=== PATIENT | male | born 1935 | race Asian ===

== ENCOUNTER 2019-05-09 14:35 | Emergency (ER) | payer BC, MEDICAID ==
[~2019-05-09] VITALS: Ht 160 cm; Wt 49.9 kg
[2019-05-09 15:24] VITALS: BP 117/53
== END 2019-05-09 17:12 | disposition home or self-care (01) ==
LOC: ER 14:35
DX: S86.912A Strain of unspecified muscle(s) and tendon(s) at lower leg level, left leg, initial encounter (principal); S80.212A Abrasion, left knee, initial encounter; W18.39XA Other fall on same level, initial encounter; Y93.01 Activity, walking, marching and hiking; Y92.488 Other paved roadways as the place of occurrence of the external cause; Y99.8 Other external cause status
CPT/HCPCS: 73562

== ENCOUNTER 2019-11-17 13:25 | Inpatient (IN) | payer MEDICARE, MEDICAID ==
[~2019-11-17] VITALS: Ht 165.1 cm; Wt 106.1 kg
[2019-11-17] MEDS ORDERED: SODIUM CHLORIDE 0.9% 500 ML IVB ONE (13:45)
[2019-11-17 15:41] LABS: Basophils # (auto) 0 10 ^3/uL (0-0.2); Basophils % (auto) 0.2 % (0.0-2.0); Eosinophils # (auto) 0 10 ^3/uL (0-0.8); Eosinophils % (auto) 0.1 % (0.0-7.0); Hematocrit 40.6 % (41.0-53.0); Hemoglobin 13.4 g/dL (13.5-17.5); Lymphocytes # (auto) 0.5 10 ^3/uL (0.4-5.4); Lymphocytes % (auto) 4.8 % (10.0-50.0); Mean Corpuscular Hemoglobin 31.8 pg (28.0-32.0); Mean Corpuscular Hgb Conc. 32.9 g/dL (32.0-36.0); Mean Corpuscular Volume 96.6 fL (80.0-100.0); Monocytes # (auto) 0.5 10 ^3/uL (0-1.3); Monocytes % (auto) 4.4 % (0.0-12.0); Neutrophils # (auto) 9.6 10 ^3/uL (1.6-8.6); Neutrophils % (auto) 90.5 % (37.0-80.0); Platelet Count (auto) 151 10^3/uL (140-450); Red Cell Distribution Width 13.9 % (11.8-14.3); White Blood Cell 10.6 10^3/uL (4.4-10.8)
[2019-11-17] MEDS ORDERED: ONDANSETRON HCL 4 MG/2 ML VIAL IV ONE (16:00)
[2019-11-17] MEDS ORDERED: MORPHINE SULF INJ 2 MG/ML SYRINGE 1ML IV ONE (16:00)
[2019-11-17 16:02] LABS: Albumin 2.9 g/dL (3.4-5.0); Potassium 3.5 mmol/L (3.5-5.1)
[2019-11-17 16:11] LABS: BUN/Creatinine Ratio 17.8; Bilirubin, Total 0.6 mg/dL (0.2-1.0); CRP High Sensitivity 7.08 mg/dL (< 0.3)
[2019-11-17] MEDS ORDERED: TEMAZEPAM 15 MG CAP PO PRN (19:30)
[2019-11-17] MEDS ORDERED: MORPHINE SULF INJ 2 MG/ML SYRINGE 1ML IV PRN (19:30)
[2019-11-17] MEDS ORDERED: ACETAMINOPHEN 500 MG TAB PO PRN (19:30)
[2019-11-17] MEDS ORDERED: NITROGLYCERIN 0.4 MG SL TAB SL PRN (19:30)
[2019-11-17] MEDS ORDERED: SODIUM CHLORIDE 0.9% 1,000 ML IV SCH (19:30)
[2019-11-17] MEDS ORDERED: levoFLOXacin 500MG 100 ML IV ONE (19:30)
[2019-11-17] MEDS ORDERED: hydrALAZINE HCL 20 MG/ML VL IV PRN (20:00)
[2019-11-17] MEDS ORDERED: ALBUTEROL SULF HFA 90MCG INH 200DOSE IN SCH (22:00)
[2019-11-17] MEDS ORDERED: BUDESONIDE (INHALATION) 180 MCG IH IN SCH (22:00)
[2019-11-17] MEDS: CLINDAMYCIN 600MG IV 50 ML IV SCH (23:30)
[2019-11-17] MEDS: FAMOTIDINE 20 MG TAB PO SCH (23:30)
[2019-11-18] VITALS (7 sets, daily range): BP systolic 110–181; BP diastolic 63–81
[2019-11-18] MEDS ORDERED: hydrALAZINE HCL 20 MG/ML VL ONE (01:55)
[2019-11-18] MEDS: CLINDAMYCIN 600MG IV 50 ML IV SCH ×2 (06:49→14:27)
[2019-11-18 07:10] LABS: Basophils # (auto) 0 10 ^3/uL (0-0.2); Basophils % (auto) 0.1 % (0.0-2.0); Eosinophils # (auto) 0 10 ^3/uL (0-0.8); Hematocrit 39.3 % (41.0-53.0); Hemoglobin 13.3 g/dL (13.5-17.5); Lymphocytes # (auto) 0.6 10 ^3/uL (0.4-5.4); Lymphocytes % (auto) 5.2 % (10.0-50.0); Mean Corpuscular Hemoglobin 32.8 pg (28.0-32.0); Mean Corpuscular Hgb Conc. 33.7 g/dL (32.0-36.0); Mean Corpuscular Volume 97.2 fL (80.0-100.0); Monocytes # (auto) 0.7 10 ^3/uL (0-1.3); Monocytes % (auto) 5.7 % (0.0-12.0); Neutrophils # (auto) 10.8 10 ^3/uL (1.6-8.6); Platelet Count (auto) 139 10^3/uL (140-450); Red Blood Cells 4.04 10^6/uL (4.5-5.90); Red Cell Distribution Width 14.1 % (11.8-14.3); White Blood Cell 12.1 10^3/uL (4.4-10.8)
[2019-11-18 07:32] LABS: Albumin 2.5 g/dL (3.4-5.0); BUN/Creatinine Ratio 21.5; Calcium 8.1 mg/dL (8.5-10.1); Potassium 3.3 mmol/L (3.5-5.1)
[2019-11-18 07:36] LABS: Bilirubin, Total 0.8 mg/dL (0.2-1.0); Total Protein 6.6 g/dL (6.4-8.2)
[2019-11-18] MEDS: DexAMETHasone SOD PHOS 10MG/1ML VIAL INJ IV SCH (08:35)
[2019-11-18] MEDS: ZINC SULFATE 220mg CAP or TAB PO SCH (08:35)
[2019-11-18] MEDS: CHOLECALCIFEROL (VITD3) 2,000 UNIT CAP PO SCH (08:36)
[2019-11-18] MEDS: ASCORBIC ACID 1,000 MG TAB PO SCH (08:36)
[2019-11-18] MEDS: FAMOTIDINE 20 MG TAB PO SCH (08:38)
[2019-11-18] MEDS: ENOXAPARIN SOD 40 MG/0.4 ML SYRINGE SC SCH (08:38)
[2019-11-18] MEDS ORDERED: levoFLOXacin 500MG 100 ML IV SCH (10:00)
[2019-11-18] MEDS ORDERED: ENOXAPARIN SOD 40 MG/0.4 ML SYRINGE SC SCH (10:00)
[2019-11-18] MEDS ORDERED: VANCOMYCIN PER PHARMACY 0 MG IV SCH (15:45)
[2019-11-18] MEDS ORDERED: POTASSIUM EFFERVESENT TAB 25 MEQ PO ONE (15:45)
[2019-11-18] MEDS: VANCOMYCIN 750mg/250ml 250 ML IV SCH (16:50)
[2019-11-18] MEDS: Ensure HIGH Protein Chocolate 8oz Bottle PO SCH (17:45)
[2019-11-18] MEDS: MEROPENEM 1GM IVPB 100 ML IV SCH (19:34)
[2019-11-19 05:00] VITALS: BP 161/70
[2019-11-19] MEDS: MEROPENEM 1GM IVPB 100 ML IV SCH ×2 (06:20→18:02)
[2019-11-19] MEDS: traMADol HCL 50 MG TAB PO PRN ×2 (06:50→16:54)
[2019-11-19 07:08] LABS: Urine WBC None Seen /hpf (0 - 3)
[2019-11-19 07:08] LABS: Basophils # (auto) 0 10 ^3/uL (0-0.2); Basophils % (auto) 0.2 % (0.0-2.0); Eosinophils # (auto) 0 10 ^3/uL (0-0.8); Eosinophils % (auto) 0.1 % (0.0-7.0); Hemoglobin 11.6 g/dL (13.5-17.5); Lymphocytes # (auto) 0.6 10 ^3/uL (0.4-5.4); Lymphocytes % (auto) 6.7 % (10.0-50.0); Mean Corpuscular Hgb Conc. 34.2 g/dL (32.0-36.0); Mean Corpuscular Volume 96.7 fL (80.0-100.0); Monocytes # (auto) 0.6 10 ^3/uL (0-1.3); Monocytes % (auto) 7.1 % (0.0-12.0); Neutrophils # (auto) 7.4 10 ^3/uL (1.6-8.6); Neutrophils % (auto) 85.9 % (37.0-80.0); Nucleated Red Blood Cells % 0.1 %; Platelet Count (auto) 123 10^3/uL (140-450); Red Blood Cells 3.52 10^6/uL (4.5-5.90); Red Cell Distribution Width 13.7 % (11.8-14.3); White Blood Cell 8.6 10^3/uL (4.4-10.8)
[2019-11-19 07:25] LABS: BUN/Creatinine Ratio 31.7; Calcium 8.1 mg/dL (8.5-10.1); Potassium 3.1 mmol/L (3.5-5.1)
[2019-11-19 07:56] LABS: Urine Bacteria FEW /hpf (None Seen); Urine Blood 2+ /uL (Negative); Urine Specific Gravity 1.023 (1.001-1.035)
[2019-11-19] MEDS: Ensure HIGH Protein Chocolate 8oz Bottle PO SCH ×3 (08:00→17:50)
[2019-11-19] MEDS: DexAMETHasone SOD PHOS 10MG/1ML VIAL INJ IV SCH (08:10)
[2019-11-19] MEDS: ASCORBIC ACID 1,000 MG TAB PO SCH (08:10)
[2019-11-19] MEDS: CHOLECALCIFEROL (VITD3) 2,000 UNIT CAP PO SCH (08:10)
[2019-11-19] MEDS: ZINC SULFATE 220mg CAP or TAB PO SCH (08:10)
[2019-11-19] MEDS: ENOXAPARIN SOD 40 MG/0.4 ML SYRINGE SC SCH (08:29)
[2019-11-19] MEDS: FAMOTIDINE 20 MG TAB PO SCH (08:29)
[2019-11-19 09:24] VITALS: BP 135/60
[2019-11-19] MEDS ORDERED: CHOLECALCIFEROL (VITD3) 1,000UNIT=25mCg TAB PO SCH (10:22)
[2019-11-19] MEDS ORDERED: ASCORBIC ACID 500 MG TAB PO SCH (10:22)
[2019-11-19] MEDS ORDERED: POTASSIUM EFFERVESENT TAB 25 MEQ PO ONE (12:00)
[2019-11-19 13:00] VITALS: BP 149/71
[2019-11-19] MEDS: VANCOMYCIN 750mg/250ml 250 ML IV SCH (16:28)
[2019-11-19 16:41] VITALS: BP 184/87
[2019-11-19] MEDS: LABETALOL HCL 5 MG/ML 4ML SYRINGE IV PRN ×2 (16:54→20:47)
[2019-11-19 17:00] VITALS: BP_SYST 124; BP_SYST 180; BP_DIAS 74; BP_DIAS 84
[2019-11-19 22:00] VITALS: BP 186/74
[2019-11-20] MEDS: LABETALOL HCL 5 MG/ML 4ML SYRINGE IV PRN ×3 (04:51→23:11)
[2019-11-20 05:00] VITALS: BP_SYST 179; BP_SYST 59; BP_DIAS 179; BP_DIAS 76
[2019-11-20 05:40] LABS: Basophils # (auto) 0 10 ^3/uL (0-0.2); Basophils % (auto) 0.2 % (0.0-2.0); Eosinophils # (auto) 0 10 ^3/uL (0-0.8); Eosinophils % (auto) 0.5 % (0.0-7.0); Hematocrit 34.1 % (41.0-53.0); Hemoglobin 11.3 g/dL (13.5-17.5); Lymphocytes # (auto) 0.6 10 ^3/uL (0.4-5.4); Lymphocytes % (auto) 8.1 % (10.0-50.0); Mean Corpuscular Hemoglobin 32.2 pg (28.0-32.0); Mean Corpuscular Hgb Conc. 33.1 g/dL (32.0-36.0); Mean Corpuscular Volume 97.2 fL (80.0-100.0); Monocytes # (auto) 0.5 10 ^3/uL (0-1.3); Monocytes % (auto) 7.6 % (0.0-12.0); Neutrophils % (auto) 83.6 % (37.0-80.0); Nucleated Red Blood Cells % 0.1 %; Platelet Count (auto) 133 10^3/uL (140-450); Red Blood Cells 3.51 10^6/uL (4.5-5.90); Red Cell Distribution Width 13.6 % (11.8-14.3); White Blood Cell 7.2 10^3/uL (4.4-10.8)
[2019-11-20 06:00] LABS: BUN/Creatinine Ratio 34.5
[2019-11-20] MEDS: MEROPENEM 1GM IVPB 100 ML IV SCH ×2 (06:25→21:28)
[2019-11-20] MEDS: traMADol HCL 50 MG TAB PO PRN ×3 (06:34→21:54)
[2019-11-20] MEDS: Ensure HIGH Protein Chocolate 8oz Bottle PO SCH ×3 (08:00→18:00)
[2019-11-20] MEDS: FAMOTIDINE 20 MG TAB PO SCH (08:42)
[2019-11-20] MEDS: ENOXAPARIN SOD 40 MG/0.4 ML SYRINGE SC SCH (08:42)
[2019-11-20] MEDS: hydrALAZINE HCL 10 MG TAB PO PRN ×2 (08:42→21:54)
[2019-11-20 09:00] VITALS: BP 167/77
[2019-11-20] MEDS ORDERED: POTASSIUM EFFERVESENT TAB 25 MEQ PO ONE (10:45)
[2019-11-20 13:00] VITALS: BP 150/74
[2019-11-20] MEDS: VANCOMYCIN 750mg/250ml 250 ML IV SCH (16:40)
[2019-11-20 16:53] VITALS: BP 197/84
[2019-11-20 22:00] VITALS: BP 163/79
[2019-11-21] MEDS: hydrALAZINE HCL 10 MG TAB PO PRN ×4 (00:50→17:41)
[2019-11-21] MEDS: LABETALOL HCL 5 MG/ML 4ML SYRINGE IV PRN ×4 (03:31→17:40)
[2019-11-21 05:00] VITALS: BP 154/73
[2019-11-21] MEDS: MEROPENEM 1GM IVPB 100 ML IV SCH ×2 (06:26→18:34)
[2019-11-21 06:49] LABS: Basophils # (auto) 0 10 ^3/uL (0-0.2); Basophils % (auto) 0.2 % (0.0-2.0); Eosinophils # (auto) 0.1 10 ^3/uL (0-0.8); Eosinophils % (auto) 1.3 % (0.0-7.0); Hematocrit 33.9 % (41.0-53.0); Hemoglobin 11.4 g/dL (13.5-17.5); Lymphocytes # (auto) 0.7 10 ^3/uL (0.4-5.4); Lymphocytes % (auto) 9.2 % (10.0-50.0); Mean Corpuscular Hemoglobin 32.5 pg (28.0-32.0); Mean Corpuscular Hgb Conc. 33.7 g/dL (32.0-36.0); Mean Corpuscular Volume 96.4 fL (80.0-100.0); Monocytes # (auto) 0.5 10 ^3/uL (0-1.3); Monocytes % (auto) 7.6 % (0.0-12.0); Neutrophils # (auto) 5.9 10 ^3/uL (1.6-8.6); Neutrophils % (auto) 81.7 % (37.0-80.0); Platelet Count (auto) 150 10^3/uL (140-450); Red Blood Cells 3.51 10^6/uL (4.5-5.90); Red Cell Distribution Width 13.5 % (11.8-14.3); White Blood Cell 7.2 10^3/uL (4.4-10.8)
[2019-11-21 07:10] LABS: Potassium 3.1 mmol/L (3.5-5.1)
[2019-11-21 07:14] LABS: BUN/Creatinine Ratio 25.9; Calcium 7.9 mg/dL (8.5-10.1)
[2019-11-21] MEDS: Ensure HIGH Protein Chocolate 8oz Bottle PO SCH ×3 (08:00→18:00)
[2019-11-21] MEDS ORDERED: POTASSIUM CHL 20 Meq TABLET PO ONE (08:30)
[2019-11-21 08:57] VITALS: BP 140/72
[2019-11-21] MEDS: FAMOTIDINE 20 MG TAB PO SCH (10:02)
[2019-11-21] MEDS: ENOXAPARIN SOD 40 MG/0.4 ML SYRINGE SC SCH (10:02)
[2019-11-21] MEDS: traMADol HCL 50 MG TAB PO PRN ×3 (10:03→22:38)
[2019-11-21] MEDS: LACTULOSE 20Gm/30ML SOLN PO PRN (12:28)
[2019-11-21 13:00] VITALS: BP 157/76
[2019-11-21 16:57] VITALS: BP 171/83
[2019-11-21] MEDS: VANCOMYCIN 750mg/250ml 250 ML IV SCH (17:40)
[2019-11-21 22:00] VITALS: BP 162/80
[2019-11-22 05:00] VITALS: BP 171/85
[2019-11-22 05:44] LABS: Basophils # (auto) 0 10 ^3/uL (0-0.2); Basophils % (auto) 0.3 % (0.0-2.0); Eosinophils # (auto) 0.1 10 ^3/uL (0-0.8); Eosinophils % (auto) 1.8 % (0.0-7.0); Hematocrit 32.5 % (41.0-53.0); Lymphocytes # (auto) 0.6 10 ^3/uL (0.4-5.4); Lymphocytes % (auto) 8.2 % (10.0-50.0); Mean Corpuscular Hemoglobin 32.8 pg (28.0-32.0); Mean Corpuscular Hgb Conc. 33.9 g/dL (32.0-36.0); Mean Corpuscular Volume 96.5 fL (80.0-100.0); Monocytes # (auto) 0.6 10 ^3/uL (0-1.3); Neutrophils # (auto) 6.2 10 ^3/uL (1.6-8.6); Neutrophils % (auto) 81.7 % (37.0-80.0); Nucleated Red Blood Cells % 0.1 %; Platelet Count (auto) 162 10^3/uL (140-450); Red Blood Cells 3.37 10^6/uL (4.5-5.90); Red Cell Distribution Width 13.3 % (11.8-14.3); White Blood Cell 7.6 10^3/uL (4.4-10.8)
[2019-11-22 06:05] LABS: Calcium 7.7 mg/dL (8.5-10.1); Potassium 3.3 mmol/L (3.5-5.1)
[2019-11-22 06:07] LABS: BUN/Creatinine Ratio 25.5
[2019-11-22] MEDS: MEROPENEM 1GM IVPB 100 ML IV SCH ×2 (06:25→17:35)
[2019-11-22] MEDS: traMADol HCL 50 MG TAB PO PRN (06:33)
[2019-11-22] MEDS: hydrALAZINE HCL 10 MG TAB PO PRN ×2 (07:57→15:45)
[2019-11-22] MEDS: LABETALOL HCL 5 MG/ML 4ML SYRINGE IV PRN ×2 (07:57→15:44)
[2019-11-22] MEDS: Ensure HIGH Protein Chocolate 8oz Bottle PO SCH ×3 (08:00→18:00)
[2019-11-22 09:00] VITALS: BP 189/94
[2019-11-22] MEDS ORDERED: POTASSIUM EFFERVESENT TAB 25 MEQ PO ONE (09:45)
[2019-11-22] MEDS: ENOXAPARIN SOD 40 MG/0.4 ML SYRINGE SC SCH (10:00)
[2019-11-22] MEDS: FAMOTIDINE 20 MG TAB PO SCH (10:47)
[2019-11-22] MEDS: amLODIPine BESYLATE 5 MG TAB PO SCH (10:47)
[2019-11-22] MEDS: MORPHINE SULF INJ 2 MG/ML SYRINGE 1ML IV PRN ×2 (10:48→15:44)
[2019-11-22] MEDS: ONDANSETRON HCL 4 MG/2 ML VIAL IV PRN ×2 (10:49→15:45)
[2019-11-22 13:00] VITALS: BP 158/80
[2019-11-22 16:23] VITALS: BP 128/62
[2019-11-22] MEDS: VANCOMYCIN 1GM/250ML 250 ML IV SCH (17:12)
[2019-11-22 22:00] VITALS: BP 135/66
[2019-11-23] MEDS: traMADol HCL 50 MG TAB PO PRN ×3 (00:45→20:41)
[2019-11-23 05:00] VITALS: BP 153/74
[2019-11-23 06:09] LABS: Basophils # (auto) 0 10 ^3/uL (0-0.2); Basophils % (auto) 0.3 % (0.0-2.0); Eosinophils # (auto) 0.1 10 ^3/uL (0-0.8); Eosinophils % (auto) 1.5 % (0.0-7.0); Hematocrit 33.9 % (41.0-53.0); Hemoglobin 11.6 g/dL (13.5-17.5); Lymphocytes # (auto) 0.7 10 ^3/uL (0.4-5.4); Lymphocytes % (auto) 9.1 % (10.0-50.0); Mean Corpuscular Hgb Conc. 34.2 g/dL (32.0-36.0); Mean Corpuscular Volume 96.4 fL (80.0-100.0); Monocytes # (auto) 0.5 10 ^3/uL (0-1.3); Monocytes % (auto) 6.5 % (0.0-12.0); Neutrophils # (auto) 6.7 10 ^3/uL (1.6-8.6); Neutrophils % (auto) 82.6 % (37.0-80.0); Platelet Count (auto) 186 10^3/uL (140-450); Red Blood Cells 3.51 10^6/uL (4.5-5.90); Red Cell Distribution Width 13.7 % (11.8-14.3); White Blood Cell 8.1 10^3/uL (4.4-10.8)
[2019-11-23] MEDS: MEROPENEM 1GM IVPB 100 ML IV SCH (06:18)
[2019-11-23 06:28] LABS: Calcium 8.3 mg/dL (8.5-10.1); Potassium 3.8 mmol/L (3.5-5.1)
[2019-11-23 06:30] LABS: BUN/Creatinine Ratio 31.4
[2019-11-23 09:00] VITALS: BP 184/81
[2019-11-23] MEDS: VANCOMYCIN 1GM/250ML 250 ML IV SCH (10:58)
[2019-11-23] MEDS: Ensure HIGH Protein Chocolate 8oz Bottle PO SCH ×3 (10:58→19:28)
[2019-11-23] MEDS: amLODIPine BESYLATE 5 MG TAB PO SCH (10:59)
[2019-11-23] MEDS: FAMOTIDINE 20 MG TAB PO SCH (11:00)
[2019-11-23] MEDS: ENOXAPARIN SOD 40 MG/0.4 ML SYRINGE SC SCH (11:00)
[2019-11-23] MEDS: MORPHINE SULF INJ 2 MG/ML SYRINGE 1ML IV PRN ×3 (11:00→17:58)
[2019-11-23 13:00] VITALS: BP 144/71
[2019-11-23] MEDS ORDERED: levoFLOXacin 250 MG TAB PO ONE (14:30)
[2019-11-23 22:00] VITALS: BP 159/63
[2019-11-23] MEDS ORDERED: DOCUSATE SOD 100 MG CAP PO SCH (22:00)
[2019-11-23] MEDS: DOCUSATE SOD 100 MG CAP PO SCH (22:55)
[2019-11-24 05:00] VITALS: BP 125/50
[2019-11-24] MEDS: DOCUSATE SOD 100 MG CAP PO SCH ×2 (08:12→22:17)
[2019-11-24] MEDS: Ensure HIGH Protein Chocolate 8oz Bottle PO SCH ×3 (08:12→18:19)
[2019-11-24] MEDS: traMADol HCL 50 MG TAB PO PRN ×2 (08:13→18:54)
[2019-11-24] MEDS: FAMOTIDINE 20 MG TAB PO SCH (08:13)
[2019-11-24 09:00] VITALS: BP 152/71
[2019-11-24] MEDS ORDERED: ACETAMINOPHEN 325 MG TAB PO PRN (10:45)
[2019-11-24] MEDS ORDERED: levoFLOXacin 250 MG TAB PO ONE (10:45)
[2019-11-24] MEDS: MORPHINE SULF INJ 2 MG/ML SYRINGE 1ML IV PRN ×2 (12:32→20:56)
[2019-11-24 13:00] VITALS: BP 140/75
[2019-11-24] MEDS: LACTULOSE 20Gm/30ML SOLN PO PRN (14:26)
[2019-11-24 17:00] VITALS: BP 159/73
[2019-11-24 20:00] VITALS: BP 188/95
[2019-11-24] MEDS: LABETALOL HCL 5 MG/ML 4ML SYRINGE IV PRN (21:08)
[2019-11-24 22:00] VITALS: BP 188/91
[2019-11-25] MEDS: traMADol HCL 50 MG TAB PO PRN ×2 (00:11→21:43)
[2019-11-25] MEDS: LABETALOL HCL 5 MG/ML 4ML SYRINGE IV PRN ×2 (01:47→05:59)
[2019-11-25] MEDS: MORPHINE SULF INJ 2 MG/ML SYRINGE 1ML IV PRN ×5 (01:47→20:16)
[2019-11-25 04:52] VITALS: BP 145/69
[2019-11-25 08:00] VITALS: BP 149/72
[2019-11-25] MEDS: Ensure HIGH Protein Chocolate 8oz Bottle PO SCH ×3 (08:00→18:00)
[2019-11-25] MEDS: levoFLOXacin 250 MG TAB PO SCH (10:09)
[2019-11-25] MEDS: amLODIPine BESYLATE 5 MG TAB PO SCH (10:09)
[2019-11-25] MEDS ORDERED: GABAPENTIN 300 MG CAP PO ONE (10:30)
[2019-11-25 12:00] VITALS: BP 132/68
[2019-11-25 16:00] VITALS: BP 111/65
[2019-11-25] MEDS: GABAPENTIN 300 MG CAP PO SCH (21:43)
[2019-11-25 22:00] VITALS: BP 124/65
[2019-11-26] MEDS ORDERED: guaiFENesin-DM 100/10mg/5ml SYR PO PRN (00:15)
[2019-11-26] MEDS: MORPHINE SULF INJ 2 MG/ML SYRINGE 1ML IV PRN ×6 (01:55→22:48)
[2019-11-26 05:00] VITALS: BP 136/72
[2019-11-26] MEDS: traMADol HCL 50 MG TAB PO PRN ×2 (07:07→20:15)
[2019-11-26 08:00] VITALS: BP 135/72
[2019-11-26] MEDS: Ensure HIGH Protein Chocolate 8oz Bottle PO SCH ×3 (08:00→18:00)
[2019-11-26] MEDS: levoFLOXacin 250 MG TAB PO SCH (10:18)
[2019-11-26] MEDS: GABAPENTIN 300 MG CAP PO SCH ×2 (10:19→22:00)
[2019-11-26] MEDS: amLODIPine BESYLATE 5 MG TAB PO SCH (10:19)
[2019-11-26] MEDS ORDERED: IPRATROPIUM BROM 0.5 MG/2.5ML INH SOL NEB PRN (11:30)
[2019-11-26] MEDS ORDERED: ALBUTEROL SULF 2.5 MG/0.5ML(0.5%) NEB SOLN NEB PRN (11:30)
[2019-11-26 13:00] VITALS: BP 123/63
[2019-11-26 17:00] VITALS: BP 139/71
[2019-11-26 18:21] VITALS: BP 139/71
[2019-11-26] MEDS: LACTULOSE 20Gm/30ML SOLN PO PRN (18:35)
[2019-11-26 21:57] VITALS: BP 140/69
[2019-11-27] MEDS: traMADol HCL 50 MG TAB PO PRN (01:58)
[2019-11-27 04:41] VITALS: BP 131/72
[2019-11-27] MEDS: Ensure HIGH Protein Chocolate 8oz Bottle PO SCH ×2 (08:00→12:00)
[2019-11-27 08:06] VITALS: BP 120/66
[2019-11-27 09:00] VITALS: BP 155/87
[2019-11-27] MEDS: GABAPENTIN 300 MG CAP PO SCH (10:26)
[2019-11-27] MEDS: levoFLOXacin 250 MG TAB PO SCH (10:26)
[2019-11-27] MEDS: amLODIPine BESYLATE 5 MG TAB PO SCH (10:26)
[2019-11-27 13:00] VITALS: BP 106/70
[2019-11-27 14:36] VITALS: BP 106/70
== END 2019-11-27 16:10 | DRG 177 ==
LOC: ER 13:25 → EDBD 13:25 → TELE 13:26 → TELE-EAST 23:26 → TELE-WESTW 11-18 05:05
PROVIDERS: ADMIT Internal Medicine; ATTEND Internal Medicine
DX: J15.1 Pneumonia due to Pseudomonas (principal); J96.00 Acute respiratory failure, unspecified whether with hypoxia or hypercapnia; A41.9 Sepsis, unspecified organism; E44.0 Moderate protein-calorie malnutrition; K62.89 Other specified diseases of anus and rectum; E87.6 Hypokalemia; E86.0 Dehydration; I10 Essential (primary) hypertension; I16.0 Hypertensive urgency; B02.9 Zoster without complications; Z86.73 Personal history of transient ischemic attack (TIA), and cerebral infarction without residual deficits; R31.9 Hematuria, unspecified; B96.1 Klebsiella pneumoniae [K. pneumoniae] as the cause of diseases classified elsewhere; Z20.828 Contact with and (suspected) exposure to other viral communicable diseases; F03.90 Unspecified dementia, unspecified severity, without behavioral disturbance, psychotic disturbance, mood disturbance, and anxiety; M79.2 Neuralgia and neuritis, unspecified; N41.9 Inflammatory disease of prostate, unspecified; Z86.19 Personal history of other infectious and parasitic diseases; Z85.118 Personal history of other malignant neoplasm of bronchus and lung; Z87.891 Personal history of nicotine dependence
CPT/HCPCS: 36415; 71045; 74176; 76775; 80048; 80053; 80202; 81001; 82378; 82533; 82728; 83605; 83615; 83690; 84443; 84484; 85025; 85610; 85652; 86141; 87040; 87070; 87077; 87086; 87186; 87205; 87426; 92610; 97110; 97163; 97530; G0378; J1956; J2185; J2405; J3490